=== PATIENT | male | born 1960 | race Caucasian/White ===

== ENCOUNTER 2018-05-02 09:16 | Emergency (ER) | payer BC ==
[2018-05-02 11:05] VITALS: BP 144/98
--- NOTE | 2018-05-02 11:49 | UC ---
Hand/Wrist HPI - HPI Summary HPI Summary: 58-year-old male comes in with a chief complaint of left hand pain after a fall yesterday. Patient tripped and fell. He's having continuing pain at the base of the left thumb. The pain was worse last night and first thing this morning. He took some Aleve this morning that did help alleviate the pain. He is able to move the finger there is no weakness or numbness. Denies any wrist pain. - History Of Current Complaint Chief Complaint: UCUpperExtremity Stated Complaint: HAND INJURY Time Seen by Provider: 05/02/18 11:47 Pain Intensity: 7 - Allergies/Home Medications Allergies/Adverse Reactions: Allergies Allergy/AdvReac Type Severity Reaction Status Date / Time acetaminophen [From Vicodin] Allergy skin clammy Verified 05/02/18 11:06 hydrocodone [From Vicodin] Allergy skin clammy Verified 05/02/18 11:06 CLAMS Allergy STOMACH Uncoded 04/13/14 06:26 SORENESS, VOMITING ENVIRONMENTAL/HAYFEVER Allergy POST NASAL Uncoded 04/13/14 06:26 DRIP, PHLEGM PRODUCTION PMH/Surg Hx/FS Hx/Imm Hx GI/ History: Gastroesophageal Reflux - Surgical History Surgical History: Yes Surgery Procedure, Year, and Place: 1962 TONSILLECTOMY, [place]. 1984 APPENDECTOMY, [facility]. 1997 SUPRAPUBIC CATHETER, [facility]. 2010 BILATERAL GREAT TOE SURGERY, [facility] [place]. 03/31/2014 LEFT URETERAL STENT AND INTERNAL URETHROMY, [facility] [place] - Family History Known Family History: Negative: Diabetes - Social History Alcohol Use: Occasionally Substance Use Type: None Smoking Status (MU): Never Smoked Tobacco Review of Systems All Other Systems Reviewed And Are Negative: Yes Constitutional: Positive: Negative Skin: Positive: Negative Eyes: Positive: Negative ENT: Positive: Negative Respiratory: Positive: Negative Cardiovascular: Positive: Negative Gastrointestinal: Positive: Negative Motor: Positive: Negative Neurovascular: Positive: Negative Musculoskeletal: Positive: Other: - SEE HPI Neurological: Positive: Negative Psychological: Positive: Negative Is Patient Immunocompromised?: No Physical Exam Triage Information Reviewed: Yes Appearance: Well-Appearing, No Pain Distress, Well-Nourished Vital Signs: Initial Vital Signs Temp 98 F 05/02/18 11:02 Pulse 77 05/02/18 11:02 Resp 17 05/02/18 11:02 BP 144/98 05/02/18 11:02 Pulse Ox 100 05/02/18 11:02 Vital Signs Reviewed: Yes Eye Exam: Normal Eyes: Positive: Conjunctiva Clear Neck exam: Normal Neck: Positive: Supple Respiratory: Positive: No respiratory distress Musculoskeletal: Positive: Other: - tender to palpation at the base of the left thumb. The thumb has his normal full range of motion. At has good strength in all directions and no sensation deficit there is no skin break. Neurological Exam: Normal Neurological: Positive: Alert, Muscle Tone Normal Psychological Exam: Normal Psychological: Positive: Age Appropriate Behavior Skin Exam: Normal Hand/Wrist Course/Dx - Course Course Of Treatment: Order Information: HAND - LEFT MINIMUM 3 VIEWS. Accession Number: [id number]. CPT: 66249. Indication: Left hand injury. 4 views of left hand demonstrates no fracture. No other bone or joint abnormality is. identified. IMPRESSION: No fracture of the left hand is noted. . <Electronically signed by Latesha Mcgee MD in [place]> 05/02/18 1132. Cussed results of the x-ray with the patient. The overall plan is anti-inflammatories ice and a thumb spica splint. If he does not completely improved to follow-up his primary care doctor or return here. - Differential Dx/Diagnosis Provider Diagnoses: LEFT THUMB SPRAIN Discharge - Sign-Out/Discharge Documenting (check all that apply): Patient Departure All imaging exams completed and their final reports reviewed: Yes - Discharge Plan Condition: Stable Disposition: HOME Patient Education Materials: Finger Sprain (ED) Referrals: Adrienne Sharma [Primary Care Provider] - Additional Instructions: FOLLOW UP WITH YOUR DOCTOR IF NOT COMPLETELY IMPROVED. GET RECHECKED FOR ANY WORSENING OF YOUR CONDITION OR QUESTIONS OR CONCERNS. - Billing Disposition and Condition Condition: STABLE Disposition: Home
== END 2018-05-02 12:05 | disposition home or self-care (01) ==
LOC: UCEAST 09:16
DX: S63.602A Unspecified sprain of left thumb, initial encounter (principal); X58.XXXA Exposure to other specified factors, initial encounter; Y92.9 Unspecified place or not applicable; Z88.8 Allergy status to other drugs, medicaments and biological substances
CPT/HCPCS: 99212; G0463

== ENCOUNTER 2020-02-04 16:33 | Observation (INO) ==
[2020-02-04] MEDS ORDERED: Ondansetron 4 mg VIAL 2 MG/ML 2 ml VIAL IV PRN (19:46)
[2020-02-04] MEDS ORDERED: NS 0.9% 1000 ml BAG 1,000 ML IV SCH (20:00)
[2020-02-04 20:31] LABS: ABS Lymphocytes 1.4 10^3/ul (1.0-4.8); ABS Monocytes 0.6 10^3/ul (0-0.8); ABS Neutrophils 9.8 10^3/ul (1.5-7.7); Eosinophil % 0.1 %; Hematocrit 47 % (42-52); Hemoglobin 16.3 g/dL (14.0-18.0); Lymphocyte % 11.7 %; Mean Corpuscular HGB Conc 35 g/dL (31-36); Mean Corpuscular Hemoglobin 32 pg (27-31); Mean Corpuscular Volume 93 fL (80-94); Mean Platelet Volume 7.8 fL (7.4-10.4); Platelet Count 169 10^3/uL (150-450); Red Blood Count 5.08 10^6 /uL (4.18-5.48); Red Cell Distribution Width 13 % (10-15); White Blood Count 11.8 10^3/uL (3.5-10.8)
[2020-02-04 20:42] LABS: Activated Partial Thrombo Time 30.3 seconds (26.0-38.0); INR 1.07 (0.82-1.09)
[2020-02-04 20:44] LABS: Urine Appearance Cloudy; Urine Bilirubin Negative (Negative); Urine Blood Negative (Negative); Urine Color Yellow; Urine Glucose Negative (Negative); Urine Ketones 1+ (Negative); Urine Nitrite Negative (Negative); Urine Protein Negative (Negative); Urine Urobilinogen Negative (Negative)
[2020-02-04 20:49] LABS: BUN/Creatinine Ratio 17.6 (8-20); Calcium 9.4 mg/dL (8.6-10.3); EGFR African American 102.8 (>60); Potassium 4.2 mmol/L (3.5-5.0)
[2020-02-04 21:05] LABS: Urine Benzodiazepine Screen None Detected (None Detect); Urine Cannabinoids Screen None Detected (None Detect); Urine Opiates Screen None Detected (None Detect)
[2020-02-04] MEDS ORDERED: Gadoteridol (CONTRAST) 279.3 MG/ML 10 ML IV ONE (21:16)
[2020-02-04] MEDS: PTO: Azelastine 0.1% Nasal (NF) 30 ML BTL BOTH NARES SCH (22:50)
[2020-02-04] MEDS: Heparin 5000 UNITS/ML 1 mL VIAL SUBCUT SCH (23:00)
[2020-02-04] MEDS: Lidocaine PATCH 5% PATCH TRANSDERM SCH (23:18)
[2020-02-05] MEDS: Lidocaine Patch REMOVE PATCH PATCH OFF SCH ×2 (03:27→21:49)
[2020-02-05 05:35] LABS: ABS Lymphocytes 1.9 10^3/ul (1.0-4.8); ABS Monocytes 0.6 10^3/ul (0-0.8); ABS Neutrophils 6.7 10^3/ul (1.5-7.7); Eosinophil % 0.5 %; Hematocrit 46 % (42-52); Hemoglobin 15.8 g/dL (14.0-18.0); Lymphocyte % 20.8 %; Mean Corpuscular HGB Conc 35 g/dL (31-36); Mean Corpuscular Hemoglobin 32 pg (27-31); Mean Corpuscular Volume 93 fL (80-94); Mean Platelet Volume 7.8 fL (7.4-10.4); Nucleated Red Blood Cells % 0.1; Platelet Count 156 10^3/uL (150-450); Red Blood Count 4.91 10^6 /uL (4.18-5.48); Red Cell Distribution Width 13 % (10-15); White Blood Count 9.3 10^3/uL (3.5-10.8)
[2020-02-05 05:55] LABS: Albumin 3.6 g/dL (3.2-5.2); Calcium 8.9 mg/dL (8.6-10.3); Indirect Bilirubin 0.7 mg/dL (0.3-1.0); Potassium 3.8 mmol/L (3.5-5.0); Total Bilirubin 0.8 mg/dL (0.2-1.0)
[2020-02-05 06:01] LABS: Albumin/Globulin Ratio 1.4 (1-3); BUN/Creatinine Ratio 15.1 (8-20); EGFR African American 100.3 (>60); EGFR Non-African American 82.9 (>60); Globulin 2.5 g/dL (2-4); HDL Cholesterol 43.7 mg/dL; Total Protein 6.1 g/dL (6.4-8.9)
[2020-02-05] MEDS: Heparin 5000 UNITS/ML 1 mL VIAL SUBCUT SCH ×3 (06:06→21:49)
[2020-02-05] MEDS: PTO: Azelastine 0.1% Nasal (NF) 30 ML BTL BOTH NARES SCH ×2 (10:32→21:46)
[2020-02-05] MEDS: Lidocaine PATCH 5% PATCH TRANSDERM SCH (10:32)
[2020-02-06] MEDS: Heparin 5000 UNITS/ML 1 mL VIAL SUBCUT SCH (05:26)
[2020-02-06] MEDS: PTO: Azelastine 0.1% Nasal (NF) 30 ML BTL BOTH NARES SCH (08:38)
[2020-02-06] MEDS: Lidocaine PATCH 5% PATCH TRANSDERM SCH (08:38)
[2020-02-06 12:01] VITALS: BP 139/86
== END 2020-02-06 14:00 | disposition home or self-care (01) ==
LOC: MEDTELE 18:43 → INTOOBSV 18:43
PROVIDERS: ADMIT Internal Medicine; ATTEND Internal Medicine